=== PATIENT | male | born 1990 ===

== ENCOUNTER 2021-11-18 07:49 | Emergency (ER) | payer SELFPAY ==
[2021-11-18 08:08] VITALS: BP 122/81
[2021-11-18] MEDS ORDERED: SODIUM CHLORIDE 0.9% 1000 ML 1,000 ML ONE (09:36)
== END 2021-11-18 17:59 | disposition left against medical advice (07) ==
LOC: ED 07:49
DX: K92.0 Hematemesis (principal); Z53.21 Procedure and treatment not carried out due to patient leaving prior to being seen by health care provider
CPT/HCPCS: J7030